=== PATIENT | male | born 1985 | race Caucasian/White ===

== ENCOUNTER 2022-04-09 08:00 | Outpatient (CLI) | payer MEDICAID ==
--- NOTE | 2022-04-09 09:53 | XRAY Report ---
PROCEDURE: Finger(s) LT INDICATIONS: CRUSHING INJURY OF LEFT INDEX FINGER TECHNIQUE: AP hand, 2 views of the index finger(s) acquired. COMPARISON: None FINDINGS: Bones: There is a minimally displaced fracture of the distal phalangeal tuft of the index finger. Soft tissues: Soft tissue swelling without radiopaque foreign body. IMPRESSION: Minimally displaced fracture of the index finger distal phalangeal tuft. Correlate clinic ally for nailbed injury. Reviewed by: Eulogio Hannah MD on 04/09/2022 9:52 AM PDT Approved by: Eulogio Hannah MD on 04/09/2022 9:52 AM PDT Station ID: [id number]
== END 2022-04-09 08:01 | disposition home or self-care (01) ==
LOC: DI.S 08:00
PROVIDERS: ATTEND Physician Assistant Medical
DX: S62.631A Displaced fracture of distal phalanx of left index finger, initial encounter for closed fracture (principal)

== ENCOUNTER 2023-04-14 08:32 | Outpatient (CLI) | payer BC, MEDICAID ==
[2023-04-14 14:47] LABS: BASOPHILS % (AUTO) 0.3 %; EOSINOPHILS # (AUTO) 0.1 10^3/uL (0.0-0.7); HCT - HEMATOCRIT 42.8 % (42.0-52.0); HGB - HEMOGLOBIN 14.4 g/dL (14.0-18.0); LYMPHOCYTES # (AUTO) 1.4 10^3/uL (1.5-3.5); LYMPHOCYTES % (AUTO) 47.2 %; MEAN CORPUSCULAR HEMOGLOBIN 29.9 pg (27.0-31.0); MEAN CORPUSCULAR HGB CONC 33.6 g/dL (32.0-36.0); MEAN PLATELET VOLUME 11.5 fL (7.4-11.4); MONOCYTES # (AUTO) 0.3 10^3/uL (0.0-1.0); MONOCYTES % (AUTO) 8.6 %; NEUTROPHILS # (AUTO) 1.2 10^3/uL (1.5-6.6); NEUTROPHILS % (AUTO) 40.9 %; PLT - PLATELET COUNT 220 10^3/uL (130-450); RED BLOOD COUNT 4.81 10^6/uL (4.70-6.10)
[2023-04-14 15:03] LABS: ALBUMIN 4.8 g/dL (3.2-5.5); ALBUMIN/GLOBULIN RATIO 1.8 (1.0-2.2); ALKALINE PHOSPHATASE 36 IU/L (42-121); ALT ALANINE AMINOTRANSFERASE 18 IU/L (10-60); AST ASPARTATE AMINOTRANSFERASE 20 IU/L (10-42); BILIRUBIN,TOTAL 0.7 mg/dL (0.2-1.0); BUN - BLOOD UREA NITROGEN 16 mg/dL (6-20); CALCIUM 9.7 mg/dL (8.5-10.3); CARBON DIOXIDE - CO2 32 mmol/L (21-32); CHLORIDE 103 mmol/L (101-111); CHOL/HDL RATIO 4.1 (<5.0); CHOLESTEROL 247 mg/dL; CREATININE 1.1 mg/dL (0.6-1.3); GFR - MDRD 75 (>89); GLUCOSE 87 mg/dL (74-104); HDL CHOLESTEROL 60 mg/dL; LDL CHOLESTEROL,CALCULATED 170 mg/dL; LDL/HDL RATIO 2.8 (<3.6); POTASSIUM 4.2 mmol/L (3.5-4.5); SODIUM 139 mmol/L (135-145); TOTAL PROTEIN 7.5 g/dL (6.4-8.9); TRIGLYCERIDES 84 mg/dL (48-352); VLDL CHOLESTEROL 17 mg/dL
== END 2023-04-14 08:33 | disposition home or self-care (01) ==
LOC: LAB.S 08:32
PROVIDERS: ATTEND Registered Nurse
DX: Z13.228 Encounter for screening for other metabolic disorders (principal); Z13.220 Encounter for screening for lipoid disorders; Z12.5 Encounter for screening for malignant neoplasm of prostate; Z13.29 Encounter for screening for other suspected endocrine disorder; Z13.0 Encounter for screening for diseases of the blood and blood-forming organs and certain disorders involving the immune mechanism
CPT/HCPCS: 36415; 80053; 80061; 83721; 84153; 84443; 85025